=== PATIENT | male | born 1950 | race Caucasian/White ===

== ENCOUNTER 2021-12-21 06:21 | Day surgery (SDC) | payer MEDICARE, OTHER ==
[2021-12-20 12:53] LABS: BASOPHILS # (AUTO) 0.1 X10'3 (0-0.2); BASOPHILS % (AUTO) 1.5 % (0-1); EOSINOPHILS # (AUTO) 0.2 X10'3 (0-0.9); EOSINOPHILS % (AUTO) 5.4 % (0-6); HEMATOCRIT 35.1 % (42.0-52.0); HEMOGLOBIN 11.8 g/dl (14.0-17.9); LYMPHOCYTES # (AUTO) 1.8 X10'3 (1.1-4.8); MEAN CORPUSCULAR HGB CONC 33.6 g/dL (33.0-36.5); MEAN CORPUSCULAR VOLUME 89.4 FL (78-98); MEAN PLATELET VOLUME 7.2 FL (7.4-10.4); MONOCYTES # (AUTO) 0.5 X10'3 (0-0.9); NEUTROPHILS # (AUTO) 1.7 X10'3 (1.8-7.7); NEUTROPHILS % (AUTO) 40.1 % (42-75); PLATELET COUNT 295 X10'3 (140-440); RED BLOOD COUNT 3.93 X10'6 (4.70-6.10); WHITE BLOOD COUNT 4.2 X10'3 (4.5-11.0)
[2021-12-20 13:07] LABS: ALANINE AMINOTRANSFERASE 18 U/L (12-78); ALBUMIN 3.9 G/DL (3.4-5.0); ALBUMIN/GLOBULIN RATIO 1.2 (1.1-1.5); ALKALINE PHOSPHATASE 92 IU/L (46-116); ANION GAP 8 (8-16); ASPARTATE AMINO TRANSFERASE 19 U/L (10-37); BILIRUBIN,TOTAL 0.5 MG/DL (0.1-1.0); BLOOD UREA NITROGEN 11 MG/DL (7-18); BUN/CREATININE RATIO 9.2 (5.4-32.0); CALCIUM 8.7 MG/DL (8.5-10.1); CHLORIDE 97 MMOL/L (99-107); GLUCOSE 108 MG/DL (70-104); POTASSIUM 4.2 MMOL/L (3.5-5.1); SODIUM 131 MMOL/L (135-145); TOTAL CARBON DIOXIDE 25.9 MMOL/L (24-32); TOTAL PROTEIN 7.1 G/DL (6.4-8.2); eGFR 60 ML/MIN
[2021-12-20 13:12] LABS: APTT 33 SECONDS (22-32)
[~2021-12-21] VITALS: Ht 190.5 cm; Wt 97.5 kg
[2021-12-21] VITALS (11 sets, daily range): BP systolic 99–156; BP diastolic 44–82
[~2021-12-21 06:21] MED LIST: AMLO2.5T2 PO; ASPI-1264 PO; GABA-532 PO; HYDR-4353 PO; HYDR25TA4 PO; OMEP20CA15 PO; SIMV-42 PO; TEMA15CA PO
[2021-12-21] MEDS ORDERED: normal saline 1,000 ML IV SCH (06:45)
[2021-12-21] MEDS ORDERED: nitroGLYCERIN 0.4mg SUBLingual tab SL PRN ×2 (06:45→11:40)
[2021-12-21] MEDS ORDERED: diphenhydrAMINE 25mg capsule PO PRN (06:45)
[2021-12-21] MEDS ORDERED: LORazepam 0.5 MG tablet PO PRN (06:45)
[2021-12-21] MEDS ORDERED: ONDA-103 PO (06:48)
[2021-12-21] MEDS ORDERED: BUPR8TAB4 SL (06:48)
[2021-12-21] MEDS ORDERED: AMLO10TA13 PO (06:48)
[2021-12-21] MEDS ORDERED: RIBO100T6 (06:48)
[2021-12-21] MEDS ORDERED: TRAZ-256 PO (06:48)
[2021-12-21] MEDS ORDERED: CLON0.1T2 PO (06:50)
[2021-12-21] MEDS ORDERED: ENAL-76 PO (06:50)
[2021-12-21] MEDS ORDERED: CAL ZINC (06:55)
[2021-12-21] MEDS ORDERED: Magnesium PO (06:55)
[2021-12-21] MEDS ORDERED: Salmon Oil (06:55)
[2021-12-21] MEDS ORDERED: Super B Complex (06:55)
[2021-12-21] MEDS ORDERED: NIAC500T44 (06:55)
[2021-12-21] MEDS ORDERED: Vitamin D (06:55)
[2021-12-21] MEDS ORDERED: MULT-1085 PO (06:55)
[2021-12-21] MEDS ORDERED: TOPI50TA24 PO (06:55)
[2021-12-21] MEDS ORDERED: Potassium Chloride (06:55)
[2021-12-21] MEDS ORDERED: LIDOcaine 1% 30ml preserv. free vial ONE (09:39)
[2021-12-21] MEDS ORDERED: midazolam 1 mg/ML 2ml injection ONE (09:39)
[2021-12-21] MEDS ORDERED: iohexol 350MG/ML 100ml bottle IV ONE ×2 (09:39→10:27)
[2021-12-21] MEDS ORDERED: fentaNYL/PF 50MCG/1 ML 2ML syringe ONE (09:39)
[2021-12-21] MEDS ORDERED: nitroGLYCERIN-Tridil 50MG/D5W 250 ML IV ONE (10:18)
[2021-12-21] MEDS ORDERED: enalaprilat dihydrate 2.5mg/2ml vial IV ONE (10:19)
[2021-12-21] MEDS ORDERED: HYDROmorphone 1 mg/ml syringe ONE (10:38)
[2021-12-21] MEDS ORDERED: ondansetron/PF 4mg/2ml inj IV PRN (11:40)
[2021-12-21] MEDS ORDERED: HYDROcodone/acetaminophen 5mg/325mg tablet PO PRN (11:40)
[2021-12-21] MEDS ORDERED: normal saline 1000ml 1,000 ML IV SCH (11:40)
[2021-12-21] MEDS ORDERED: HYDROcodone/acetaminophen 10/325mg tab PO PRN (11:40)
[2021-12-21] MEDS ORDERED: proCHLORperazine 10 MG/2 ml inj IV PRN (11:40)
[2021-12-21] MEDS ORDERED: acetaminophen 325mg tablet PO PRN (11:40)
[2021-12-21] MEDS ORDERED: OXAZEpam 15mg capsule PO PRN (11:40)
== END 2021-12-21 16:30 | disposition home or self-care (01) ==
LOC: SSTAY O 06:21
PROVIDERS: ATTEND Internal Medicine Cardiovascular Disease
DX: R94.39 Abnormal result of other cardiovascular function study (principal); I25.10 Atherosclerotic heart disease of native coronary artery without angina pectoris; I35.0 Nonrheumatic aortic (valve) stenosis; I10 Essential (primary) hypertension; E78.5 Hyperlipidemia, unspecified; Z79.01 Long term (current) use of anticoagulants; Z79.899 Other long term (current) drug therapy; Z96.651 Presence of right artificial knee joint
CPT/HCPCS: 36415; 71046; 80053; 85025; 85610; 85730; 93005; 93458; 99152; 99153; C1760; C1769; J1170; J1644; J2250; J3010; J3490; J7030; Q0163; Q9967; A4620; A6258

== ENCOUNTER 2023-09-26 06:37 | Inpatient (IN) | payer MEDICARE, OTHER ==
[2023-09-18 09:06] LABS: BASOPHILS # (AUTO) 0.1 X10'3 (0-0.2); EOSINOPHILS # (AUTO) 0.4 X10'3 (0-0.9); EOSINOPHILS % (AUTO) 5.2 % (0-6); MEAN CORPUSCULAR HEMOGLOBIN 31.3 PG (27.0-31.0); MEAN CORPUSCULAR HGB CONC 34.5 g/dL (33.0-36.5); MEAN CORPUSCULAR VOLUME 90.6 FL (78-98); MEAN PLATELET VOLUME 6.1 FL (7.4-10.4); MONOCYTES # (AUTO) 0.9 X10'3 (0-0.9); NEUTROPHILS % (AUTO) 54.8 % (42-75); PRE OP HEMATOCRIT 34.6 % (42.0-52.0); PRE OP HEMOGLOBIN 11.9 g/dL (14.0-17.9); PRE OP PLATELET COUNT 275 X10'3 (140-440); PRE OP WHITE BLOOD COUNT 7.3 10'3 (4.8-10.8); RED BLOOD COUNT 3.82 X10'6 (4.70-6.10); RED CELL DISTRIBUTION WIDTH 13.3 % (11.5-14.5)
[2023-09-18 09:41] LABS: ALBUMIN 3.6 G/DL (3.4-5.0); ALKALINE PHOSPHATASE 103 IU/L (46-116); BLOOD UREA NITROGEN 14 MG/DL (7-18); BUN/CREATININE RATIO 10.3 (10.0-20.0); CALCIUM 8.9 MG/DL (8.5-10.1); CHLORIDE 96 MMOL/L (99-107); CREATININE 1.36 MG/DL (0.60-1.10); PRE OP ALT 20 U/L (30-65); PRE OP AST 15 U/L (10-37); PRE OP BILIRUB, TOTAL 0.6 MG/DL (0.0-1.0); PRE OP GLUCOSE 101 MG/DL (70-104); TOTAL CARBON DIOXIDE 24.7 MMOL/L (24-32); TOTAL PROTEIN 7.3 G/DL (6.4-8.2); eGFR 52 ML/MIN
[2023-09-18 09:44] LABS: PRE OP ANION GAP 9 (8-16); PRE OP POTASSIUM 4.2 MMOL/L (3.4-5.1)
[2023-09-18 09:45] LABS: PRE OP SODIUM 130 MMOL/L (135-145)
[2023-09-26] VITALS (33 sets, daily range): BP systolic 96–154; BP diastolic 38–73; PULSE 52–83; RESP 10–57; TEMP 96.6–98.8; O2SAT 96–100
[~2023-09-26] VITALS: Ht 188 cm; Wt 98.0 kg
[2023-09-26] MEDS: famotidine 20mg tablet PO ONE (05:30)
[2023-09-26] MEDS: vancomycin 1,500 MG in NS 300ml IV soln IV ONE (05:30)
[2023-09-26] MEDS: cefazolin 2gm/D5W 100mL 100 ML IV ONE (05:37)
[2023-09-26] MEDS: tranexamic acid inj. 1,000 MG in normal saline IV soln 100ML IV ONE (05:37)
[~2023-09-26 06:37] MED LIST changes: +AMLO10TA13 PO; -AMLO2.5T2 PO; +ARMO50TA4 PO; -ASPI-1264 PO; +BUPR2TAB11 SL; +ENAL-76 PO; -HYDR-4353 PO; -HYDR25TA4 PO; -TEMA15CA PO; +TOPI50TA PO; +vancomycin/NS 1 GM in NS 250 ML IV ONE
[2023-09-26 07:38] LABS: ISTAT CREATININE 1.3 mg/dL (0.8-1.3); ISTAT HGB 11.2 g/dl (14.0-17.9); ISTAT IONIZED CALCIUM 1.29 mmol/L (1.03-1.32); ISTAT K 3.9 mmol/L (3.5-5.1)
[2023-09-26] MEDS ORDERED: BUPIVAcaine/dex-water/PF 7.5 mg/ml 2ml ampul ONE (08:32)
[2023-09-26] MEDS ORDERED: MIDAZolam 1mg/ml 10ml vial ONE (08:35)
[2023-09-26] MEDS ORDERED: fentaNYL/PF 50MCG/1 ML 2ML syringe ONE (08:35)
[2023-09-26] MEDS ORDERED: propofol inj 20 ML IV ONE ×2 (09:06→09:07)
[2023-09-26] MEDS: morphine 10mg/ml inj. ONE (09:23)
[2023-09-26] MEDS: epiNEPHrine 1 mg/ml inj ONE (09:23)
[2023-09-26] MEDS: vancomycin 1,000mg inj ONE (09:24)
[2023-09-26] MEDS: ROPIVAcaine 0.5% (5mg/ml) 30ml vial ONE (09:24)
[2023-09-26] MEDS ORDERED: meperidine/PF 25mg/ml syringe IV PRN ×2 (09:45)
[2023-09-26] MEDS ORDERED: morphine 2 MG/ML inj. syringe IV PRN (09:45)
[2023-09-26] MEDS ORDERED: morphine 4 MG/ML inj SYRINge IV PRN (09:45)
[2023-09-26] MEDS ORDERED: proCHLORperazine 10 MG/2 ml inj IV PRN (09:45)
[2023-09-26] MEDS ORDERED: ondansetron/PF 4mg/2ml inj IV PRN (09:45)
[2023-09-26] MEDS ORDERED: ROPIVAcaine 0.2% (10 MG/5 ML) BOLUS INJECTION ADDCANAL PRN (09:45)
[2023-09-26] MEDS ORDERED: ringers solution, lacted 1,000 ML IV SCH (09:45)
[2023-09-26] MEDS ORDERED: diphenhydrAMINE 25mg capsule PO PRN ×2 (11:55)
[2023-09-26] MEDS: potassium Cl 20mEq in NS 1,000 ML IV SCH (11:55)
[2023-09-26] MEDS ORDERED: magnesium hydroxide 30ml (MOM) UD suspension PO PRN (11:55)
[2023-09-26] MEDS ORDERED: naloxone 0.4 mg/ml inj IV PRN (11:55)
[2023-09-26] MEDS ORDERED: acetaminophen 325mg tablet PO PRN (11:55)
[2023-09-26] MEDS ORDERED: bisacodyl 10mg suppository rectal RC PRN (11:55)
[2023-09-26] MEDS: ROPIVAcaine 0.2%/PF PUMP/bolus 545 ML ADDCANAL SCH (12:15)
[2023-09-26] MEDS: meperidine/PF 25mg/ml syringe IV PRN (12:16)
[2023-09-26] MEDS ORDERED: gabapentin 300mg capsule PO SCH (13:00)
[2023-09-26] MEDS: acetaminophen 1,000mg/100ml IV 100 ML IV ONE (13:21)
[2023-09-26] MEDS: HYDROmorphone inj. 0.5 MG/0.5 ML DISP.SYRIN IV PRN (13:44)
[2023-09-26] MEDS: acetaminophen 325mg tablet PO SCH (14:00)
[2023-09-26] MEDS: oxyCODONE IR 5mg (immed. release) tablet PO PRN (15:37)
[2023-09-26] MEDS: ceFAZolin/D5W- 1GM premix 50 ML IV SCH (16:32)
[2023-09-26] MEDS: HYDROmorphone 1 mg/ml syringe IV PRN (17:36)
[2023-09-26] MEDS: ondansetron/PF 4mg/2ml inj IV PRN (17:41)
[2023-09-26] MEDS: ringers solution, lacted 1,000 ML IV SCH (19:00)
[2023-09-26] MEDS: gabapentin 300mg capsule PO SCH (20:00)
[2023-09-26] MEDS: topiramate 25mg tablet PO SCH (20:00)
[2023-09-26] MEDS: lisinopril 5mg tablet PO SCH (20:00)
[2023-09-26] MEDS: tranexamic acid inj. 980 MG in normal saline 100ml IV soln 90.2 ML IV ONE (20:00)
[2023-09-26] MEDS: sennosides 8.6mg tablet PO SCH (21:00)
[2023-09-26] MEDS: vancomycin/NS 1 GM ADD-VANTAGE 250 ML IV SCH (22:24)
[2023-09-27] VITALS (8 sets, daily range): BP systolic 148–183; BP diastolic 64–78; PULSE 70–88; RESP 12–18; TEMP 97.1–99.7; O2SAT 96–99
[2023-09-27] MEDS: oxyCODONE IR 5mg (immed. release) tablet PO PRN (00:58)
[2023-09-27] MEDS: atorvastatin 10mg tablet PO SCH (07:59)
[2023-09-27] MEDS: pantoprazole 40mg Tablet.DR PO SCH (07:59)
[2023-09-27] MEDS: amLODIPine 5mg tablet PO SCH (08:00)
[2023-09-27] MEDS: enoxaparin 40mg/0.4ml syringe SQ SCH (08:00)
[2023-09-27] MEDS: armodafinil 50mg tablet PO SCH (08:51)
[2023-09-27] MEDS: celeCOXIB 100mg capsule PO SCH (19:51)
[2023-09-28 06:00] VITALS: BP 157/70; PULSE 76; RESP 14; TEMP 97.1; O2SAT 98
[2023-09-28 08:00] VITALS: RESP 20; O2SAT 99
[2023-09-28 08:51] VITALS: BP_SYST 157; PULSE 76
[2023-09-28] MEDS ORDERED: acetaminophen 325mg tablet PO PRN (11:55)
[2023-09-28] MEDS ORDERED: LACT1CAP76 PO (12:04)
[2023-09-28] MEDS ORDERED: ASPI-1 PO (12:04)
[2023-09-28] MEDS ORDERED: CELE-148 PO (12:04)
[2023-09-28] MEDS ORDERED: STORE MEDs IN PHARMACY MC (12:04)
[2023-09-28 14:59] VITALS: RESP 16
[2023-09-28] MEDS ORDERED: OXYC-150 PO (15:20)
== END 2023-09-28 15:35 | disposition home health service (06) | DRG 470 ==
LOC: PAS IN 06:37 → ORTHO 4S 14:02
PROVIDERS: ADMIT Orthopaedic Surgery; ATTEND Orthopaedic Surgery
PROC: 0JH80WZ Insertion of Totally Implantable Vascular Access Device into Abdomen Subcutaneous Tissue and Fascia, Open Approach (ICD-10-PCS; 2023-09-26)
PROC: 3E0T3BZ Introduction of Anesthetic Agent into Peripheral Nerves and Plexi, Percutaneous Approach (ICD-10-PCS; 2023-09-26)
PROC: 0SRD0J9 Replacement of Left Knee Joint with Synthetic Substitute, Cemented, Open Approach (ICD-10-PCS; principal; 2023-09-26 08:32)
DX: M17.12 Unilateral primary osteoarthritis, left knee (principal); M25.762 Osteophyte, left knee; M65.862 Other synovitis and tenosynovitis, left lower leg; I10 Essential (primary) hypertension; I16.0 Hypertensive urgency; E78.5 Hyperlipidemia, unspecified; G43.909 Migraine, unspecified, not intractable, without status migrainosus; M41.9 Scoliosis, unspecified; G89.4 Chronic pain syndrome; Z79.899 Other long term (current) drug therapy
CPT/HCPCS: 36415; 73560; 80047; 80053; 85025; 87081; 97110; 97116; 97161; 97530; A4215; A6253; A6258; A6446; A6449; A7000; C1713; C1758; C1776; C9250; G0378; J0131; J0171; J0690; J1170; J1650; J2175; J2250; J2274; J2405; J2704; J2795; J3010; J3370; J3480; J3490; J7120

== ENCOUNTER 2024-02-13 13:25 | Day surgery (SDC) | payer MEDICARE, OTHER ==
[2024-02-07 13:35] LABS: BASOPHILS # (AUTO) 0.1 X10'3 (0-0.2); EOSINOPHILS # (AUTO) 0.4 X10'3 (0-0.9); EOSINOPHILS % (AUTO) 6.6 % (0-6); LYMPHOCYTES # (AUTO) 2.4 X10'3 (1.1-4.8); LYMPHOCYTES % (AUTO) 39.1 % (21-51); MEAN CORPUSCULAR HEMOGLOBIN 28.9 PG (27.0-31.0); MEAN CORPUSCULAR HGB CONC 33.2 g/dL (33.0-36.5); MEAN PLATELET VOLUME 6.5 FL (7.4-10.4); MONOCYTES # (AUTO) 0.6 X10'3 (0-0.9); MONOCYTES % (AUTO) 10.3 % (2-12); NEUTROPHILS # (AUTO) 2.6 X10'3 (1.8-7.7); PRE OP HEMATOCRIT 32.2 % (42.0-52.0); PRE OP PLATELET COUNT 259 X10'3 (140-440); PRE OP WHITE BLOOD COUNT 6.2 10'3 (4.8-10.8); RED CELL DISTRIBUTION WIDTH 15.9 % (11.5-14.5)
[2024-02-07 13:37] LABS: PRE OP HEMOGLOBIN 10.7 g/dL (14.0-17.9)
[2024-02-07 14:11] LABS: ALBUMIN 3.9 G/DL (3.4-5.0); ALBUMIN/GLOBULIN RATIO 1.2 (1.1-1.5); ALKALINE PHOSPHATASE 111 IU/L (46-116); BLOOD UREA NITROGEN 8 MG/DL (7-18); BUN/CREATININE RATIO 6.8 (10.0-20.0); CHLORIDE 99 MMOL/L (99-107); CREATININE 1.18 MG/DL (0.60-1.10); PRE OP ALT 18 U/L (30-65); PRE OP ANION GAP 9 (8-16); PRE OP AST 18 U/L (10-37); PRE OP BILIRUB, TOTAL 0.5 MG/DL (0.0-1.0); PRE OP GLUCOSE 93 MG/DL (70-104); PRE OP SODIUM 132 MMOL/L (135-145); TOTAL CARBON DIOXIDE 24.2 MMOL/L (24-32); TOTAL PROTEIN 7.1 G/DL (6.4-8.2); eGFR 61 ML/MIN
[2024-02-13] VITALS (8 sets, daily range): BP systolic 134–158; BP diastolic 48–74; PULSE 53–67; RESP 10–16; TEMP 99; O2SAT 99–100
[~2024-02-13] VITALS: Ht 190.5 cm; Wt 94.6 kg
[2024-02-13] MEDS: cefazolin 2gm/D5W 100mL 100 ML IV ONE (05:30)
[~2024-02-13 13:25] MED LIST changes: -ARMO50TA4 PO; +ASPI81TA52 PO; +NIAC500T44 PO; +OXYC10TA47 PO; -vancomycin/NS 1 GM in NS 250 ML IV ONE
[2024-02-13] MEDS: famotidine 20mg tablet PO ONE (14:29)
[2024-02-13] MEDS: ringers solution, lacted 1,000 ML IV SCH (14:30)
[2024-02-13] MEDS ORDERED: sevoflurane 250ml liquid IH ONE (17:25)
[2024-02-13] MEDS ORDERED: BUPIVAcaine 0.5% inj/PF 30 ML ONE (17:26)
[2024-02-13] MEDS ORDERED: BUPIVACAINE liposomal/PF 13.3 MG/ML vial IM ONE (17:26)
[2024-02-13] MEDS ORDERED: LIDOcaine 2% (20mg/ml) 5ml vial ONE (17:27)
[2024-02-13] MEDS ORDERED: fentaNYL/PF 50MCG/1 ML 2ML syringe ONE (17:27)
[2024-02-13] MEDS ORDERED: midazolam 1 mg/ML 2ml injection ONE (17:27)
[2024-02-13] MEDS ORDERED: propofol inj 20 ML IV ONE (17:28)
[2024-02-13] MEDS ORDERED: acetaminophen 1,000mg/100ml IV 100 ML IV ONE (17:35)
[2024-02-13] MEDS: triamcinolone acetonide 40mg/ml inj IM ONE (17:45)
[2024-02-13] MEDS ORDERED: naloxone 0.4 mg/ml inj ONE (17:49)
[2024-02-13] MEDS ORDERED: morphine 2 MG/ML inj. syringe IV PRN (18:00)
[2024-02-13] MEDS ORDERED: fentaNYL/PF 50MCG/1 ML 2ML syringe IV PRN ×2 (18:00)
[2024-02-13] MEDS ORDERED: ringers solution, lacted 1,000 ML IV SCH (18:00)
[2024-02-13] MEDS ORDERED: hydrALAZINE 20mg/ml inj. IV PRN (18:00)
[2024-02-13] MEDS ORDERED: ondansetron/PF 4mg/2ml inj IV PRN (18:00)
[2024-02-13] MEDS ORDERED: morphine 4 MG/ML inj SYRINge IV PRN (18:00)
[2024-02-13] MEDS ORDERED: enalaprilat dihydrate 2.5mg/2ml vial IV PRN (18:00)
== END 2024-02-13 18:58 | disposition home or self-care (01) ==
LOC: PAS 13:25
PROVIDERS: ATTEND Orthopaedic Surgery
DX: M24.662 Ankylosis, left knee (principal); G89.18 Other acute postprocedural pain; I10 Essential (primary) hypertension; F41.9 Anxiety disorder, unspecified; F32.A Depression, unspecified; K21.9 Gastro-esophageal reflux disease without esophagitis; G43.909 Migraine, unspecified, not intractable, without status migrainosus; G62.9 Polyneuropathy, unspecified; Z96.612 Presence of left artificial shoulder joint; Z96.653 Presence of artificial knee joint, bilateral; Z98.890 Other specified postprocedural states
CPT/HCPCS: 20610; 27570; 36415; 64447; 80053; 82948; 85025; A4618; C9290; J0131; J0665; J0690; J2001; J2250; J2310; J2704; J3010; J3301; J7120; Z7506; Z7512; Z7610; J3490